=== PATIENT | male | born 1985 | race Caucasian/White ===

== ENCOUNTER → 2025-04-18 13:20 | Outpatient (CLI) | payer OTHER, SELFPAY | PROVIDERS: Family Provider Urology; PCP Urology; Referring Provider Urology; Visit Provider Surgery | DX: I87.2 Venous insufficiency (chronic) (peripheral) (principal); L97.812 Non-pressure chronic ulcer of other part of right lower leg with fat layer exposed; L97.322 Non-pressure chronic ulcer of left ankle with fat layer exposed; L98.8 Other specified disorders of the skin and subcutaneous tissue; R60.0 Localized edema; F17.210 Nicotine dependence, cigarettes, uncomplicated | CPT/HCPCS: 11042; 87070; 87075; 87077; 87147; 87186; 87205; 99203; 99212 ==

== ENCOUNTER → 2025-04-20 14:45 | Outpatient (CLI) | payer OTHER, SELFPAY | LOC: WC 04-21 16:16 | PROVIDERS: Family Provider Urology; PCP Urology; Referring Provider Physician Assistant; Visit Provider Surgery | DX: I87.2 Venous insufficiency (chronic) (peripheral) (principal); L97.812 Non-pressure chronic ulcer of other part of right lower leg with fat layer exposed; L97.322 Non-pressure chronic ulcer of left ankle with fat layer exposed; L98.8 Other specified disorders of the skin and subcutaneous tissue; R60.0 Localized edema | CPT/HCPCS: 99212 ==

== ENCOUNTER → 2025-04-25 14:15 | Outpatient (CLI) | payer OTHER, SELFPAY | LOC: WC 14:16 | PROVIDERS: Family Provider Urology; PCP Urology; Referring Provider Physician Assistant; Visit Provider Surgery | DX: I87.2 Venous insufficiency (chronic) (peripheral) (principal); L97.912 Non-pressure chronic ulcer of unspecified part of right lower leg with fat layer exposed; L97.322 Non-pressure chronic ulcer of left ankle with fat layer exposed; L98.8 Other specified disorders of the skin and subcutaneous tissue; Z72.0 Tobacco use; Z59.82 Transportation insecurity; F11.10 Opioid abuse, uncomplicated | CPT/HCPCS: 11042 ==

== ENCOUNTER → 2025-05-02 13:21 | Outpatient (CLI) | payer OTHER, SELFPAY | LOC: WC 13:27 | PROVIDERS: Family Provider Urology; PCP Urology; Referring Provider Physician Assistant; Visit Provider Surgery | DX: I87.2 Venous insufficiency (chronic) (peripheral) (principal); L97.912 Non-pressure chronic ulcer of unspecified part of right lower leg with fat layer exposed; L97.322 Non-pressure chronic ulcer of left ankle with fat layer exposed; L98.8 Other specified disorders of the skin and subcutaneous tissue; L81.8 Other specified disorders of pigmentation; Z72.0 Tobacco use; Z59.82 Transportation insecurity; F11.10 Opioid abuse, uncomplicated | CPT/HCPCS: 29580; 99213 ==

== ENCOUNTER → 2025-05-09 13:03 | Outpatient (CLI) | payer OTHER, SELFPAY | LOC: WC 13:04 | PROVIDERS: Family Provider Urology; PCP Urology; Referring Provider Physician Assistant; Visit Provider Surgery | DX: L97.812 Non-pressure chronic ulcer of other part of right lower leg with fat layer exposed (principal); L97.322 Non-pressure chronic ulcer of left ankle with fat layer exposed; I87.2 Venous insufficiency (chronic) (peripheral); F17.210 Nicotine dependence, cigarettes, uncomplicated | CPT/HCPCS: 97602; 99213 ==

== ENCOUNTER → 2025-05-12 10:58 | Outpatient (CLI) | payer OTHER, SELFPAY | LOC: WC 11:04 | PROVIDERS: Family Provider Urology; PCP Urology; Referring Provider Physician Assistant; Visit Provider Physician Assistant | DX: L97.812 Non-pressure chronic ulcer of other part of right lower leg with fat layer exposed (principal); L97.322 Non-pressure chronic ulcer of left ankle with fat layer exposed; I87.2 Venous insufficiency (chronic) (peripheral); R60.0 Localized edema | CPT/HCPCS: 29580 ==